=== PATIENT | female | born 1980 | race Caucasian/White ===

== ENCOUNTER 2020-12-15 09:38 | Emergency (ER) | payer OTHER ==
[~2020-12-15 09:38] MED LIST: FLEXERIL10 MG PO; MEDROL 4MG DOSEP4 MG PO; VOLTAREN **OUT75 MG PO; ZOFRAN8 MG PO
[2020-12-15 13:44] LABS: BILIRUBIN NEGATIVE (NEGATIVE); BLOOD 1+ Ery/uL (NEGATIVE); CLARITY HAZY (CLEAR); COLOR YELLOW (YELLOW); GLUCOSE (U) NORMAL (NORMAL); LEUKOCYTES 2+ Leu/uL (NEGATIVE); NITRITE NEGATIVE (NEGATIVE); PROTEIN NEGATIVE (NEGATIVE); SPECIFIC GRAVITY 1.015 (1.001-1.030); UROBILINOGEN 0.2 mg/dL (0.2-1.0)
[2020-12-15 13:56] LABS: BACTERIA 1+; SQUAMOUS EPITHELIAL CELLS RARE; TRANSITIONAL EPITHELIAL CELLS RARE; URINARY RBC RARE; URINARY WBC 20-50
[2020-12-15 14:42] LABS: BASOPHIL 0.8 % (0-2); EOSINOPHIL 1.8 % (0-5); HCT 38.9 % (37.0-47.0); HGB 13.4 g/dl (12.5-16.0); LYMPHOCYTE 22.8 % (15-48); MCHC 34.4 g/dL (32.0-36.0); MCV 92.8 fL (78.0-100.0); MONOCYTE 4.3 % (0-12); MPV 9.7 fL (6.0-9.5); NEUTROPHIL 69.8 % (41-80); NRBC 0; PLT 389 K/uL (150-400); RBC 4.19 M/uL (4.20-5.40); RDW 12.1 % (11.5-14.0); WBC 9.5 K/uL (4.0-10.5)
[2020-12-15 14:55] LABS: BUN/CREAT RATIO (CALC) 20.6 RATIO; CREATININE 0.68 mg/dL (0.51-0.95); POTASSIUM 4.1 mmol/L (3.5-5.1)
[2020-12-15] MEDS ORDERED: MEDROL 4MG DOSEP4 MG PO (15:12)
[2020-12-15] MEDS ORDERED: CYCLOBENZAPRINE10 MG PO (15:12)
[2020-12-15] MEDS ORDERED: BACTRIM DS TAB1 EACH PO (15:12)
== END 2020-12-15 15:33 | disposition home or self-care (01) ==
LOC: FER 09:38
PROVIDERS: Nurse Practitioner Family
DX: M54.42 Lumbago with sciatica, left side (principal); N39.0 Urinary tract infection, site not specified; K59.00 Constipation, unspecified; N20.0 Calculus of kidney
CPT/HCPCS: 36415; 80048; 81001; 85025; 96372; J1100; J1885